=== PATIENT | male | born 1975 | race Caucasian/White ===

== ENCOUNTER 2022-04-07 01:42 | Emergency (ER) | payer OTHER ==
[2022-04-07] MEDS ORDERED: CEPHALEXIN500 MG PO (03:49)
[2022-04-07] MEDS ORDERED: BACTRIM DS TAB1 EACH PO (03:49)
== END 2022-04-07 03:15 | disposition home or self-care (01) ==
LOC: ER1 01:42
DX: L02.511 Cutaneous abscess of right hand (principal); L03.011 Cellulitis of right finger; K21.9 Gastro-esophageal reflux disease without esophagitis; F17.210 Nicotine dependence, cigarettes, uncomplicated
CPT/HCPCS: 10060; 73140; 87070; 87077; 87186; 87205; 99283